=== PATIENT | female | born 1945 | race Caucasian/White ===

== ENCOUNTER 2022-12-30 15:29 | Emergency (ER) | payer MEDICARE, OTHER ==
[~2022-12-30] VITALS: Ht 165.1 cm; Wt 99.7 kg
[2022-12-30 16:48] LABS: BASO% 0.8 % (0-3); EOS% 4.1 % (0-8); HEMOGLOBIN 11.6 g/dl (12.0-16.0); IMMATURE GRANULOCYTES 0.3 % (0.0-5.0); LYMPH% 24.6 % (15-41); MEAN CELL VOLUME 98.9 fL CALC (80.0-100.0); MEAN CORPUSCULAR HGB 31.9 pG CALC (26.0-32.0); MEAN CORPUSCULAR HGB CONC 32.2 g/dL CAL (32.0-36.0); MONO% 4.9 % (2-13); NEUT% 65.3 % (42-76); RED BLOOD COUNT 3.64 mill/uL (4.20-5.60); RED CELL DISTRI WIDTH 15.6 % (11.5-15.5)
[2022-12-30 17:02] LABS: PROTHROMBIN TIME 9.8 SECONDS (9.0-12.5)
[2022-12-30 17:04] LABS: ALBUMIN 4.7 g/dL (3.2-5.0); BILIRUBIN, TOTAL 0.5 mg/dL (0.02-1.3); CREATININE 1.3 mg/dL (0.5-1.0); POTASSIUM 4.4 mmol/l (3.5-5.1); TOTAL PROTEIN 7.9 g/dL (6.3-8.2)
[2022-12-30 18:43] VITALS: BP 117/74
== END 2022-12-30 18:49 | disposition home or self-care (01) ==
LOC: ED 15:29
PROVIDERS: Nurse Practitioner
PROC: 2W3JX1Z Immobilization of Right Finger using Splint (ICD-10-PCS; principal; 2022-12-30)
DX: S46.211A Strain of muscle, fascia and tendon of other parts of biceps, right arm, initial encounter (principal); S62.664A Nondisplaced fracture of distal phalanx of right ring finger, initial encounter for closed fracture; S50.11XA Contusion of right forearm, initial encounter; E03.9 Hypothyroidism, unspecified; I10 Essential (primary) hypertension; Y93.E6 Activity, residential relocation; X58.XXXA Exposure to other specified factors, initial encounter

== ENCOUNTER 2023-08-19 17:14 | Emergency (ER) | payer MEDICARE, OTHER ==
[2023-08-19] VITALS (9 sets, daily range): BP systolic 84–143; BP diastolic 41–67
[~2023-08-19] VITALS: Ht 165.1 cm; Wt 81.0 kg
[2023-08-19 18:26] LABS: BASO% 0.6 % (0-3); EOS% 3.2 % (0-8); HEMATOCRIT 32.2 % (37.0-47.0); HEMOGLOBIN 10.1 g/dl (12.0-16.0); IMMATURE GRANULOCYTES 0.2 % (0.0-5.0); LYMPH% 20.4 % (15-41); MEAN CELL VOLUME 98.5 fL CALC (80.0-100.0); MEAN CORPUSCULAR HGB 30.9 pG CALC (26.0-32.0); MEAN CORPUSCULAR HGB CONC 31.4 g/dL CAL (32.0-36.0); NEUT# 4.31 thou/uL (2.00-7.15); NEUT% 69.6 % (42-76); RED BLOOD COUNT 3.27 mill/uL (4.20-5.60); RED CELL DISTRI WIDTH 14.7 % (11.5-15.5)
[2023-08-19 18:44] LABS: ALBUMIN 4.2 g/dL (3.2-5.0); BILIRUBIN, TOTAL 0.6 mg/dL (0.02-1.3); C-REACTIVE PROTEIN 1.1 mg/dL (0-0.9); CREATININE 1.1 mg/dL (0.5-1.0); POTASSIUM 4.1 mmol/l (3.5-5.1)
[2023-08-19] MEDS ORDERED: VIBRAMYCIN100 M2 PO (19:02)
[2023-08-23] MEDS ORDERED: VIBRAMYCIN100 M2 PO (19:22)
[2023-08-23] MEDS ORDERED: SIMVASTATIN20 M1 PO (22:44)
[2023-08-23] MEDS ORDERED: CARISOPRODOL350 M1 PO (22:46)
[2023-08-23] MEDS ORDERED: OMEGA 31000 MG PO (22:47)
[2023-08-23] MEDS ORDERED: SYNTHROID150 MCG PO (22:49)
[2023-08-23] MEDS ORDERED: LOPRESSOR25 M1 PO (22:51)
[2023-08-23] MEDS ORDERED: SINEQUAN25 MG PO (22:52)
[2023-08-24] MEDS ORDERED: GLATOPA SC (00:35)
[2023-08-25] MEDS ORDERED: KEFLEX500 MG PO (15:37)
[2023-08-25] MEDS ORDERED: LASIX 20 MG TAB20 MG PO (15:38)
== END 2023-08-19 19:52 | disposition home or self-care (01) ==
LOC: ED 17:14
PROVIDERS: Nurse Practitioner
DX: L03.116 Cellulitis of left lower limb (principal); L03.115 Cellulitis of right lower limb; I10 Essential (primary) hypertension

== ENCOUNTER 2024-03-28 14:03 | Emergency (ER) | payer MEDICARE, OTHER ==
[~2024-03-28] VITALS: Ht 157.5 cm; Wt 86.1 kg
[~2024-03-28 14:03] MED LIST: CARISOPRODOL350 M1 PO; GLATOPA SC; KEFLEX500 MG PO; LASIX 20 MG TAB20 MG PO; LOPRESSOR25 M1 PO; OMEGA 31000 MG PO; SIMVASTATIN20 M1 PO; SINEQUAN25 MG PO; SYNTHROID150 MCG PO; VIBRAMYCIN100 M2 PO
[2024-03-28 14:21] VITALS: BP 133/56
[2024-03-28 14:32] VITALS: BP 102/60
[2024-03-28 14:46] VITALS: BP 119/58
[2024-03-28 16:10] VITALS: BP 141/64
== END 2024-03-28 16:24 | disposition home or self-care (01) ==
LOC: ED 14:03
DX: S63.91XA Sprain of unspecified part of right wrist and hand, initial encounter (principal); S60.221A Contusion of right hand, initial encounter; S80.211A Abrasion, right knee, initial encounter; I10 Essential (primary) hypertension; W01.0XXA Fall on same level from slipping, tripping and stumbling without subsequent striking against object, initial encounter; Y92.512 Supermarket, store or market as the place of occurrence of the external cause; Z95.2 Presence of prosthetic heart valve; Z79.01 Long term (current) use of anticoagulants